=== PATIENT | female | born 1990 | race Caucasian/White ===

== ENCOUNTER 2017-05-17 23:05 | Emergency (ER) | payer SELFPAY ==
[~2017-05-17] VITALS: Wt 90.0 kg
--- NOTE | 2017-05-18 01:01 | ERD ---
ER Documentation Chief Complaint Date/Time DATE: 05/18/17 TIME: 00:58 Chief Complaint MIDSTERNAL CHEST WALL PAIN W/ SOB X1 HR NOW GONE, NECK PAIN HPI 26-year-old female presents to emergency department for complaints of chest pain , episode of the shortness of breath started one hour prior to arrival. Patient pain radiating to the neck area. Patient denies any fever or chills. Patient does not have any cough. Patient denies any dyspnea on exertion or dyspnea on lying down. Patient denies any trauma in the chest. ROS All systems reviewed and are negative except as per history of present illness. Medications Home Meds Reported Medications [none] Unknown Strength No Conflict Check 05/18/17 Allergies Allergies: Coded Allergies: No Known Allergy (Unverified , 05/18/17) PMhx/Soc Medical and Surgical Hx: pt denies Medical Hx, pt denies Surgical Hx FmHx Family History: No coronary disease, No diabetes, No other Physical Exam Vitals Vital Signs Date Time Temp Pulse Resp B/P Pulse Ox O2 Delivery O2 Flow Rate FiO2 05/17/17 23:10 98.1 90 20 126/94 97 Physical Exam GENERAL: The patient is well developed and appropriate for usual state of health, in no apparent distress. CHEST: Clear to auscultation bilaterally. There are no rales, wheezes or rhonchi. HEART: Regular rate and rhythm. No murmurs, clicks, rubs or gallops. No S3 or S4. ABDOMEN: Soft, nontender and nondistended. Good bowel sounds. No rebound or guarding. No gross peritonitis. No gross organomegaly or masses. No Jose sign or McBurney point tenderness. BACK: No midline or flank tenderness. EXTREMITIES: Equal pulses bilaterally. There is no peripheral clubbing, cyanosis or edema. No focal swelling or erythema. Full range of motion. Grossly neurovascularly intact. NEURO: Alert and oriented. Cranial nerves 2-12 intact. Motor strength in all 4 extremities with 5/5 strength. Sensation grossly intact. Normal speech and gait. SKIN: There is no apparent rash or petechia. The skin is warm and dry. HEMATOLOGIC AND LYMPHATIC: There is no evidence of excessive bruising or lymphedema. No gross cervical, axillary, or inguinal lymphadenopathy. Results 24 hrs EKG was done, read by me and is normal sinus rhythm at a rate of 99, normal axis , there is no ST changes or changes in the EKG that indicates any cardiac emergencies at this time. Patient's EKG was also reviewed by . Impression: no acute findings on EKG PROCEDURE: CHEST - 1 VIEW CLINICAL INDICATION: 26-year-old female with chest pain. TECHNIQUE: A single frontal AP portable view of the chest was performed. The images were reviewed on a PACS workstation. COMPARISON: None. FINDINGS: The cardiomediastinal silhouette has a normal appearance. There is no evidence for an infiltrate. The pulmonary vascularity is within normal limits. There is no evidence for pneumothorax or pneumomediastinum. The osseous structures are intact. IMPRESSION: No evidence for active cardiopulmonary disease. .Shar Hall MD, MD Date Time Electronically viewed and signed by .Shar Hall MD, MD on 05/18/2017 01:27 .M/ CC: JOSÉ SERRATO NP Procedures/MDM Medical Decision Making: Patient's pain nonspecific at this time, possible musculoskeletal pain, can be also anxiety. There is low suspicion for cardiopulmonary emergencies at this time. Patient has low risk factors. EKG is normal, there is no changes in the EKG that indicates cardiac emergencies. Chest X-ray does not show cardiopulmonary emergencies at this time. There is low suspicion for aortic aneurysm, myocardial infarction, pneumothorax, pleural effusion, pulmonary embolism, or any other cardiopulmonary emergencies at this time. The patient is advised to see primary care doctor for further evaluation, possibly see block piler patient is for Holter monitoring or stress test. Patient is advised to return to emergency department for any worsening symptoms. Dispostion: Home. Stable Departure Diagnosis: Primary Impression: Atypical chest pain Condition: Stable Patient Instructions: Chest Pain, Uncertain Cause JOSÉ SERRATO NP May 18, 2017 01:01
--- NOTE | 2017-05-18 01:27 | RADRPT ---
PROCEDURE: CHEST - 1 VIEW CLINICAL INDICATION: 26-year-old female with chest pain. TECHNIQUE: A single frontal AP portable view of the chest was performed. The images were reviewed on a PACS workstation. COMPARISON: None. FINDINGS: The cardiomediastinal silhouette has a normal appearance. There is no evidence for an infiltrate. T he pulmonary vascularity is within normal limits. There is no evidence for pneumothorax or pneumomed iastinum. The osseous structures are intact. IMPRESSION: No evidence for active cardiopulmonary disease. .Shar Hall MD, MD Date Time Electronically viewed and signed by .Shar Hall MD, on 05/18/2017 01:27 .Jaimee/
[2017-05-18 02:02] VITALS: BP 124/66; PULSE 81; RESP 18; TEMP 97.5
== END 2017-05-18 02:02 | disposition home or self-care (01) ==
LOC: FTE 23:05
DX: R07.89 Other chest pain (principal)
CPT/HCPCS: 71010; 93005